=== PATIENT | female | born 1995 | race Caucasian/White ===

== ENCOUNTER 2019-04-25 10:49 | Emergency (ER) | payer BC ==
[~2019-04-25] VITALS: Wt 68.0 kg
[2019-04-25 10:51] VITALS: BP 126/58; PULSE 84; RESP 18
[2019-04-25] MEDS ORDERED: NITR-58 PO (12:02)
--- NOTE | 2019-04-25 12:11 | ERD ---
ER Documentation Chief Complaint Chief Complaint VAGINAL DISCHARGE SINCE TODAY. NO FEVERS OR ABD PAIN HPI 24-year-old female presenting with black vaginal discharge this morning. Patient also felt like she is unable to hold her urine and some pressure with urination. Denies dysuria. Patient just finished a month-long course of amoxicillin but denies any white discharge or itchy sensation to the vaginal region. She denies any back pain. Is not sexually active and is a virgin. Denies pregnancies. Denies medical problems. NKDA. Surgical history ear tubes. Social history denies ROS All systems reviewed and are negative except as per history of present illness. Medications Home Meds Active Scripts Nitrofurantoin Monohyd Macrocr* (Macrobid*) 100 Mg Capsr, 100 MG PO BID for 14 Days, CAP Prov:KARTIK CASTRO PA-C 04/25/19 Allergies Allergies: Coded Allergies: No Known Drug Allergies (Verified Allergy, Unknown, 04/25/19) PMhx/Soc Medical and Surgical Hx: pt denies Medical Hx, pt denies Surgical Hx FmHx Family History: No diabetes, No coronary disease, No other Physical Exam Vitals Vital Signs Date Temp Pulse Resp B/P (MAP) Pulse Ox O2 O2 Flow FiO2 Time Delivery Rate 04/25/19 99.7 84 18 126/58 98 10:51 (80) Physical Exam GENERAL: The patient is well-appearing, well-nourished, in no acute distress CHEST: Clear to auscultation bilaterally. There are no rales, wheezes or rhonchi. HEART: Regular rate and rhythm. No murmurs, clicks, rubs or gallops. ABDOMEN:Soft, nontender and nondistended. Good bowel sounds. No rebound or guarding. No gross peritonitis. No gross organomegaly or masses. Results 24 hrs Laboratory Tests Test 04/25/19 11:28 04/25/19 11:30 Bedside Urine pH (LAB) 6.5 Bedside Urine Protein (LAB) Negative Bedside Urine Glucose (UA) Negative Bedside Urine Ketones (LAB) 1+ Bedside Urine Blood 2+ Bedside Urine Nitrite (LAB) Negative Bedside Urine Leukocyte Esterase (L 1+ POC Beta HCG, Qualitative NEGATIVE Procedures/MDM ER course: Urinalysis shows signs of infection. MDM: 24-year-old female presenting with complaints of black discharge from the vaginal region. Patient likely had old blood from her recent period. I have low suspicion for pelvic infection or abnormality. I do not feel blood work or imaging is indicated. Patient has findings concerning for urinary tract infection I will treat with antibiotics. I have low suspicion for STDs patient is not sexually active and never has been. I have low suspicion for yeast infection as patient not having itching to the vaginal region. Patient is discharged with strict ER precautions and told to follow-up with primary care within 1 to 2 days for close evaluation. Patient is told symptoms change or worsen to return immediately to the ER. All questions answered at discharge Departure Diagnosis: Primary Impression: UTI (urinary tract infection) Condition: Stable Patient Instructions: Understanding Urinary Tract Infections (UTIs) Referrals: [facility] YOU HAVE RECEIVED A MEDICAL SCREENING EXAM AND THE RESULTS INDICATE THAT YOU DO NOT HAVE A CONDITION THAT REQUIRES URGENT TREATMENT IN THE EMERGENCY DEPARTMENT. FURTHER EVALUATION AND TREATMENT OF YOUR CONDITION CAN WAIT UNTIL YOU ARE SEEN IN YOUR DOCTORS OFFICE WITHIN THE NEXT 1-2 DAYS. IT IS YOUR RESPONSIBILITY TO MAKE AN APPOINTMENT FOR FOLOW-UP CARE. IF YOU HAVE A PRIMARY DOCTOR --you should call your primary doctor and schedule an appointment IF YOU DO NOT HAVE A PRIMARY DOCTOR YOU CAN CALL OUR PHYSICIAN REFERRAL HOTLINE AT IF YOU CAN NOT AFFORD TO SEE A PHYSICIAN YOU CAN CHOSE FROM THE FOLLOWING [facility] [id number] [facility] [address] [facility] [facility] [address] [facility] [address] [facility] [address] [facility] [facility]. [address] Additional Instructions: FOLLOW UP WITH YOUR PRIMARY CARE PHYSICIAN TOMORROW.Return to this facility if you are not improving as expected. KARTIK CASTRO PA-C Apr 25, 2019 12:11
== END 2019-04-25 12:13 | disposition home or self-care (01) ==
LOC: FTE 10:49
DX: N39.0 Urinary tract infection, site not specified (principal)
CPT/HCPCS: 81003; 81025; 99283